=== PATIENT | male | born 1995 | race Two or more races ===

== ENCOUNTER 2016-09-27 20:48 | Emergency (ER) | payer OTHER ==
--- NOTE | ~2016-09-27 | EKG ---
PATIENT: HARRY MERINO UNIT #: [id number] Ventricular Rate: 82 BPM Atrial Rate: 82 BPM P-R Interval: 128 ms QRS Duration: 84 ms Q-T Interval: 344 ms QTC Calculation(Bezet): 401 ms P Garfield: 81 degrees Calculated R Garfield: 78 degrees Calculated T Garfield: 63 degrees Diagnosis Line: Normal sinus rhythm Diagnosis Line: Normal ECG Diagnosis Line: No previous ECGs available Diagnosis Line: Confirmed by CHASE VIRK MD ([id number]) on Diagnosis Line: 09/29/2016 8:46:05 AM INTERPRETING MD: MOOSE CRAWFORD
== END 2016-09-27 23:08 | disposition home or self-care (01) ==
LOC: CED 20:48 → CFTX 20:48
DX: J20.9 Acute bronchitis, unspecified (principal); J30.2 Other seasonal allergic rhinitis; H61.22 Impacted cerumen, left ear
CPT/HCPCS: 93005; 99283